=== PATIENT | female | born 1995 ===

== ENCOUNTER 2017-08-28 15:26 | Emergency (ER) | payer MEDICAID ==
[2017-08-28 15:41] VITALS: O2SAT 100
[2017-08-28] MEDS ORDERED: Albuterol-Ipratrop 3 mg / 0.5 (3 ml) UD INH STA (16:03)
[2017-08-28] MEDS ORDERED: Sodium Chloride 0.9% 1,000 ML IV STA (16:04)
--- NOTE | 2017-08-28 16:04 | ED PDOC ---
HPI: Chest Pain Time Seen by Provider: 08/28/17 15:39 Chief Complaint (Nursing): Chest Pain Chief Complaint (Provider): chest pain, cough History Per: Patient Additional Complaint(s): 22-year-old female with history of asthma presents to emergency department with chest pain, cough and shortness of breath for the past 3 days. Patient states albuterol nebulizer treatments are not helping. She denies any fever or chills. Patient denies any recent travel. Past Medical History Reviewed: Historical Data, Nursing Documentation, Vital Signs Vital Signs: Last Vital Signs Temp 98.2 F 08/28/17 15:41 Pulse 82 08/28/17 15:41 Resp 16 08/28/17 15:41 BP 99/78 L 08/28/17 15:41 Pulse Ox 100 08/28/17 17:22 - Medical History PMH: Asthma - Surgical History Other surgeries: right ankle surgery - Family History Family History: States: No Known Family Hx - Living Arrangements Living Arrangements: With Family - Social History Current smoker - smoking cessation education provided: No Alcohol: None Drugs: Denies - Home Medications Home Medications: Ambulatory Orders Medication Instructions Recorded Naproxen [Naprosyn] 1 tab PO BID PRN #25 tab 10/16/15 Albuterol HFA [Ventolin HFA 90 1 puff IH ASDIR #1 unit 08/28/17 mcg/actuation (8 g)] Prednisone 50 mg PO DAILY #5 tablet 08/28/17 - Allergies Allergies/Adverse Reactions: Allergies Allergy/AdvReac Type Severity Reaction Status Date / Time No Known Allergies Allergy Verified 10/16/15 18:24 CHAN Risk Score for UA/NSTEMI - CHAN Risk Score Age > 64: NO 3 or more CAD Risk Factors: NO Known CAD (Stenosis greater than 50%): NO Aspirin use in past 7 days: NO Severe Angina: NO EKG ST changes greater than 0.5mm: NO Positive Cardiac Marker: NO CHAN Score: 0 Risk %: 5% Curb-65 Severity Score - CURB-65 Severity Score Confusion: No Bun >19mg/dl (>7mmol/L): No Respiratory Rate greater than/equal to 30: No Systolic BP <90 or Diastolic BP less than/equal 60mmHg: No Age >64: No Curb-65 Score: 0 Percentage 30-day mortality: 0.6% Wells Criteria for PE - Wells Criteria for Pulmonary Embolism Clinical Signs and Symptoms of DVT: No P.E is #1 Diagnosis, or Equally Likely: No Heart Rate >100: No Immobilization at least 3 days;Surgery previous 4 weeks: No Previous, objectively diagnosed PE or DVT: No Hemoptysis: No Malignancy w/treatment within 6 months, or palliative: No Total Score: 0 Review of Systems ROS Statement: Except As Marked, All Systems Reviewed And Found Negative Constitutional: Negative for: Fever Cardiovascular: Positive for: Chest Pain ("tightness") Respiratory: Positive for: Cough, Shortness of Breath, Pleuritic Pain, Wheezing. Negative for: Hemoptysis, Sputum Gastrointestinal: Negative for: Nausea, Vomiting Neurological: Negative for: Headache, Dizziness Physical Exam - Reviewed Nursing Documentation Reviewed: Yes Vital Signs Reviewed: Yes - Physical Exam Appears: Positive for: Well, Non-toxic, No Acute Distress Skin: Negative for: Rash Eye Exam: Positive for: Normal appearance Cardiovascular/Chest: Positive for: Regular Rate, Rhythm Respiratory: Positive for: Decreased Breath Sounds. Negative for: Rhonchi, Wheezing, Respiratory Distress Gastrointestinal/Abdominal: Positive for: Soft. Negative for: Tenderness, Distended, Guarding, Rebound Back: Positive for: Normal Inspection Extremity: Positive for: Normal ROM Neurologic/Psych: Positive for: Alert, Oriented - Laboratory Results Result Diagrams: 08/28/17 16:27 08/28/17 16:27 Urine POC: Negative - ECG Interpretation Of ECG: NSR 75 bpm, no acute finding, reviewed by PA and ED attending. O2 Sat by Pulse Oximetry: 100 Pulse Ox Interpretation: Normal - Other Rad CXR X-Ray: Interpreted by Me, Viewed By Me X-Ray Interpretation: no acute infiltrate Medical Decision Making Medical Decision Makin22 year old with asthma history here with chest pain and SOB Plan: CXR EKG CBC CMP Trop IVF PO prednisone Duoneb x 1 Patient reports improvement of symptoms after meds given. Prescriptions provided for Ventolin inhaler and prednisone. Patient was advised to follow up with primary doctor in 2-3 days. Disposition - Clinical Impression Clinical Impression: Asthma exacerbation, Pleuritic chest pain - Patient ED Disposition Is Patient to be Admitted: No Counseled Patient/Family Regarding: Studies Performed, Diagnosis, Need For Followup, Rx Given - Disposition Referrals: [facility] [Outside] Disposition: Routine/Home Disposition Time: 18:20 Condition: IMPROVED Additional Instructions: Take prescription medications as directed. Follow-up with primary doctor or clinic in 2-3 days. Prescriptions: Albuterol HFA [Ventolin HFA 90 mcg/actuation (8 g)] 1 puff IH ASDIR #1 unit Prednisone 50 mg PO DAILY #5 tablet Instructions: Asthma (ED), Pleurisy (ED) Forms: [facility] (Ukrainian) Results - Lab Results Lab Results: 08/28/17 08/28/17 16:27 16:27 WBC 6.0 RBC 4.44 Hgb 14.0 Hct 41.1 MCV 92.5 MCH 31.4 H MCHC 34.0 RDW 12.5 Plt Count 197 MPV 8.6 Neut % (Auto) 60.0 Lymph % (Auto) 27.2 [place] % (Auto) 10.4 H Eos % (Auto) 2.0 Baso % (Auto) 0.4 Neut # 3.6 Lymph # 1.6 [place] # 0.6 Eos # 0.1 Baso # 0.0 Sodium 142 Potassium 3.7 Chloride 106 Carbon Dioxide 26 Anion Gap 14 BUN 10 Creatinine 0.6 L Est GFR ( Amer) > 60 Est GFR (Non-Af Amer) > 60 Random Glucose 88 Calcium 9.1 Total Bilirubin 0.3 AST 15 ALT 26 Alkaline Phosphatase 74 Troponin I < 0.0120 Total Protein 7.1 Albumin 4.3 Globulin 2.9 Albumin/Globulin Ratio 1.5
[2017-08-28 16:34] LABS: BASO % 0.4 % (0.0-2.0); EOS # 0.1 K/uL (0.0-0.7); HEMATOCRIT 41.1 % (34.0-47.0); LYMPH # 1.6 K/uL (1.0-4.3); LYMPH % 27.2 % (20.0-40.0); MEAN CELL VOLUME 92.5 fl (81.0-99.0); MEAN CORPUSCULAR HEMOGLOBIN 31.4 pg (27.0-31.0); MEAN PLATELET VOLUME 8.6 fl (7.2-11.7); MONO # 0.6 K/uL (0.0-0.8); MONO % 10.4 % (0.0-10.0); NEUT # 3.6 K/uL (1.8-7.0); NRBC % 0.1 % (0.0-0.0); RED CELL DISTRIBUTION WIDTH 12.5 % (11.5-14.5)
[2017-08-28 16:47] LABS: ALB/GLOB RATIO 1.5 (1.0-2.1); ALKALINE PHOSPHATASE 74 U/L (38-126); ALT/SGPT 26 U/L (9-52); AST/SGOT 15 U/L (14-36); BILIRUBIN,TOTAL 0.3 mg/dl (0.2-1.3); BLOOD UREA NITROGEN 10 mg/dl (7-17); CALCIUM 9.1 mg/dL (8.4-10.2); CARBON DIOXIDE 26 mmol/L (22-30); CHLORIDE 106 mmol/L (98-107); GFR AFRICAN-AMERICAN > 60; GLUCOSE,RANDOM 88 mg/dL (65-105); POTASSIUM 3.7 MMOL/L (3.6-5.0); SODIUM 142 mmol/l (132-148); TOTAL PROTEIN 7.1 G/DL (6.3-8.2)
[2017-08-28 18:21] VITALS: BP 105/62; PULSE 76; RESP 18; TEMP 98.4
--- NOTE | 2017-08-28 18:42 | RAD ---
HISTORY: cough COMPARISON: No prior. TECHNIQUE: Chest PA and lateral FINDINGS: LUNGS: No active pulmonary disease. PLEURA: No significant pleural effusion identified. No pneumothorax apparent. CARDIOVASCULAR: Normal. OSSEOUS STRUCTURES: No significant abnormalities. VISUALIZED UPPER ABDOMEN: Normal. OTHER FINDINGS: None. IMPRESSION: No active disease. Concordant results with the preliminary interpretation rendered by the emergency department physician procedure.
== END 2017-08-28 22:27 | disposition home or self-care (01) ==
LOC: H.ER 15:26
DX: J45.901 Unspecified asthma with (acute) exacerbation (principal)
CPT/HCPCS: 71020; 80053; 81025; 84484; 85025; 94640; 99283; J7040

== ENCOUNTER 2017-12-03 10:58 | Emergency (ER) | payer MEDICAID ==
[2017-12-03 11:40] VITALS: BP 146/99; PULSE 81; RESP 16; TEMP 97; O2SAT 99
--- NOTE | 2017-12-03 12:31 | ED PDOC ---
HPI: Abdomen Time Seen by Provider: 12/03/17 11:37 Chief Complaint (Nursing): Abdominal Pain Chief Complaint (Provider): Abdominal Pain History Per: Patient History/Exam Limitations: no limitations Onset/Duration Of Symptoms: Days (x2) Current Symptoms Are (Timing): Still Present Additional Complaint(s): Valentina Kessler is a 22 year old female that presents to the ED with a chief complaint of on and off left upper to left lateral abdominal pain that she has been experiencing for the past 2 days. Patient reports that the pain does not come in any particular pattern, and is not associated with any urinary discomfort or fever, but that she has had some chills. Of Note: Patient has hx of asthma, takes Albuterol as needed. Past Medical History Reviewed: Historical Data, Nursing Documentation, Vital Signs Vital Signs: Last Vital Signs Temp 97 F L 12/03/17 11:38 Pulse 81 12/03/17 11:38 Resp 16 12/03/17 11:38 BP 146/99 H 12/03/17 11:38 Pulse Ox 99 12/03/17 12:34 - Medical History PMH: Asthma - Surgical History Other surgeries: ankle ligament surgery - Family History Family History: States: Unknown Family Hx - Home Medications Home Medications: Ambulatory Orders Medication Instructions Recorded Polyethylene Glycol 3350 [Miralax] 17 g PO DAILY #14 packet 12/03/17 Sod Phos,M-B/Na Phos,Di-Ba [Fleet 133 ml RC Q72H #2 enema 12/03/17 Enema] - Allergies Allergies/Adverse Reactions: Allergies Allergy/AdvReac Type Severity Reaction Status Date / Time No Known Allergies Allergy Verified 10/16/15 18:24 Review of Systems Constitutional: Positive for: Chills. Negative for: Fever Gastrointestinal: Positive for: Abdominal Pain Genitourinary Female: Negative for: Dysuria, Hematuria, Vaginal Discharge, Vaginal Bleeding Neurological: Positive for: Other (mild lightheadedness) Physical Exam - Reviewed Nursing Documentation Reviewed: Yes Vital Signs Reviewed: Yes - Physical Exam Appears: Positive for: Non-toxic, No Acute Distress Head Exam: Positive for: ATRAUMATIC, NORMOCEPHALIC Skin: Positive for: Normal Color, Warm Eye Exam: Positive for: Normal appearance, EOMI, PERRL Neck: Positive for: Normal, Supple Cardiovascular/Chest: Positive for: Regular Rate, Rhythm. Negative for: Murmur Respiratory: Positive for: Normal Breath Sounds. Negative for: Wheezing Gastrointestinal/Abdominal: Positive for: Tenderness (TTP Left upper and left lateral). Negative for: Normal Exam Back: Positive for: Normal Inspection, L CVA Tenderness (mild). Negative for: R CVA Tenderness Extremity: Positive for: Normal ROM Neurologic/Psych: Positive for: Alert, Oriented. Negative for: Motor/Sensory Deficits - Laboratory Results Urine dip results: Negative for: Leukocyte Esterase, Blood, Nitrate, Ketones, Glucose, Bilirubin, Protein - ECG O2 Sat by Pulse Oximetry: 99 (RA) Pulse Ox Interpretation: Normal - Radiology X-Ray: Viewed By Me X-Ray Interpretation: Other (copious stool and gas in the area of pain) Medical Decision Making Medical Decision Making: Impression: Left Upper Abdominal Pain, ddx include UTI vs. Kidney Stone vs. Constipation Plan: * X-Ray Obstructive Series * Urine Dip * Urine Preg * Reevaluation Scribe Attestation: Documented by Elina Zepeda, acting as a scribe for Linda Matthew MD. Provider Scribe Attestation: All medical record entries made by the Scribe were at my direction and personally dictated by me. I have reviewed the chart and agree that the record accurately reflects my personal performance of the history, physical exam, medical decision making, and the department course for this patient. I have also personally directed, reviewed, and agree with the discharge instructions and disposition. Disposition - Clinical Impression Clinical Impression: Flatulence symptom - Patient ED Disposition Is Patient to be Admitted: No Doctor Will See Patient In The: Office Counseled Patient/Family Regarding: Diagnosis, Need For Followup, Rx Given - Disposition Disposition: Routine/Home Disposition Time: 12:37 Condition: STABLE Prescriptions: Polyethylene Glycol 3350 [Miralax] 17 g PO DAILY #14 packet Sod Phos,M-B/Na Phos,Di-Ba [Fleet Enema] 133 ml RC Q72H #2 enema Instructions: Gas and Bloating (ED), Constipation (ED) Forms: [facility] (Romanian) - POA Present On Arrival: None
--- NOTE | 2017-12-03 13:09 | RAD ---
PROCEDURE: Radiographs of the chest and abdomen (obstructive series) HISTORY: abdominal pain COMPARISON: Comparison chest dated 08/28/2017 TECHNIQUE: AP radiograph of the chest, with upright and supine radiographs of the abdomen. FINDINGS: CHEST: Lungs: Clear. Cardiovascular: Normal size heart. No pulmonary vascular congestion. Pleura: No pleural fluid. No pneumothorax. Other findings: None. ABDOMEN AND PELVIS: Bowel: Moderate amount of stool seen within the large bowel consistent with mild constipation. The. No evidence of mechanical obstruction. Free air: Nonvisualized. Bones: Unremarkable. Other findings: None. IMPRESSION: No acute cardiopulmonary disease. Findings consistent mild constipation.
== END 2017-12-03 12:50 | disposition home or self-care (01) ==
LOC: H.ER 10:58
DX: R14.3 Flatulence (principal); J45.909 Unspecified asthma, uncomplicated

== ENCOUNTER 2018-12-13 09:17 | Emergency (ER) | payer MEDICAID ==
[2018-12-13 09:44] VITALS: BP 119/74; PULSE 84; RESP 20; TEMP 98.1; O2SAT 98
--- NOTE | 2018-12-13 12:01 | ED PDOC ---
HPI: Back Time Seen by Provider: 12/13/18 10:27 Chief Complaint (Nursing): Back Pain Chief Complaint (Provider): Back Pain History Per: Patient History/Exam Limitations: no limitations Onset/Duration Of Symptoms: Days (three to four), Sudden Onset Current Symptoms Are (Timing): Still Present Quality Of Discomfort: Dull, Aching, "Pain" (Pt presents to the ED complaining of new onset of lower back pain after falling on her concrete steps several days ago and sustaining injury. Pt denies numbness, tingling, sensory impedence, motor difficuly, NVD, LOC or other injury; pt denies bowel or urinary symptoms, ecchymosis and laceration to the injured region) Past Medical History Reviewed: Historical Data, Nursing Documentation, Vital Signs Vital Signs: Last Vital Signs Temp 98.1 F 12/13/18 09:41 Pulse 84 12/13/18 09:41 Resp 20 12/13/18 09:41 BP 119/74 12/13/18 09:41 Pulse Ox 98 12/13/18 09:41 - Medical History PMH: Asthma - Family History Family History: States: Unknown Family Hx - Home Medications Home Medications: Ambulatory Orders Medication Instructions Recorded Polyethylene Glycol 3350 [Miralax] 17 g PO DAILY #14 packet 12/03/17 Sod Phos,M-B/Na Phos,Di-Ba [Fleet 133 ml RC Q72H #2 enema 12/03/17 Enema] Diclofenac Potassium 50 mg PO BID #20 tablet 12/13/18 - Allergies Allergies/Adverse Reactions: Allergies Allergy/AdvReac Type Severity Reaction Status Date / Time No Known Allergies Allergy Verified 12/13/18 09:40 Review of Systems ROS Statement: Except As Marked, All Systems Reviewed And Found Negative Musculoskeletal: Positive for: Back Pain Physical Exam - Reviewed Nursing Documentation Reviewed: Yes Vital Signs Reviewed: Yes - Physical Exam Appears: Positive for: Well, Non-toxic, No Acute Distress. Negative for: Uncomfortable Head Exam: Positive for: ATRAUMATIC, NORMAL INSPECTION, NORMOCEPHALIC Skin: Positive for: Normal Color (there is no ecchymosis, swelling, or laceration, abrasion or discoloration to the region injured), Warm, Dry. Negative for: Diaphoresis, Pallor, Rash Eye Exam: Positive for: Normal appearance, PERRL ENT: Positive for: Normal ENT Inspection Neck: Positive for: Normal, Painless ROM, Supple. Negative for: Decreased ROM Cardiovascular/Chest: Positive for: Regular Rate, Rhythm Respiratory: Positive for: Normal Breath Sounds Pulses-Carotid (L): 2+ Pulses-Carotid (R): 2+ Pulses-Radial (L): 2+ Pulses-Radial (R): 2+ Back: Positive for: Normal Inspection, Vertebral Tenderness (TTP at ). Negative for: L CVA Tenderness, R CVA Tenderness, Decreased ROM Extremity: Positive for: Capillary Refill (<2seconds). Negative for: Tenderness, Swelling - ECG O2 Sat by Pulse Oximetry: 98 Medical Decision Making Medical Decision Making: Lumbar XRAY Wet read of XRAY indicates no fractures, no spondolyses, no ruptures; normal back xray with occurence of concavity right mild scoliosis Disposition - Clinical Impression Clinical Impression: Contusion - Patient ED Disposition Is Patient to be Admitted: No Doctor Will See Patient In The: Office Counseled Patient/Family Regarding: Diagnosis, Need For Followup, Rx Given - Disposition Referrals: [facility] [Outside] Disposition: Routine/Home Disposition Time: 13:42 Condition: STABLE Prescriptions: Diclofenac Potassium 50 mg PO BID #20 tablet Instructions: Contusion (DC), Taking Care of Bruises Forms: [email or web address] (Sami)
--- NOTE | 2018-12-13 14:08 | RAD ---
Date of service: 12/13/2018 PROCEDURE: Radiographs of the Lumbar Spine. HISTORY: s/p fall to back COMPARISON: No prior. FINDINGS: BONES: Normal alignment. No listhesis. No fracture. DISC SPACES: Unremarkable. OTHER FINDINGS: None. IMPRESSION: Unremarkable radiographs of the lumbar spine.
== END 2018-12-13 13:57 | disposition home or self-care (01) ==
LOC: H.ER 09:17
DX: T14.8XXA Other injury of unspecified body region, initial encounter (principal); J45.909 Unspecified asthma, uncomplicated
CPT/HCPCS: 72114; 81025; 96372; 99283; J1885